=== PATIENT | male | born 1985 | race Two or more races ===

== ENCOUNTER → 2019-08-02 | Emergency (ER) | payer OTHER ==
[~2019-08-02] VITALS: Ht 188 cm; Wt 106.6 kg
[~2019-08-02] MED LIST: CIPROFLOXACIN 400MG/200ML 200 ML IV ONE; IOHEXOL 300 MG/ML 100ML BOTTLE IJ ONE; MORPHINE SULF INJ 2 MG/ML SYRINGE 1ML IV ONE; SODIUM CHLORIDE 0.9% 2,000 ML IV ONE; metroNIDAZOLE 500MG/100ML 100 ML IV ONE
[2019-08-02 19:04] LABS: Basophils # (auto) 0.1 10 ^3/uL (0-0.2); Basophils % (auto) 0.5 % (0.0-2.0); Eosinophils # (auto) 0.1 10 ^3/uL (0-0.8); Eosinophils % (auto) 1.3 % (0.0-7.0); Hematocrit 45.5 % (41.0-53.0); Hemoglobin 15.4 g/dL (13.5-17.5); Lymphocytes # (auto) 1.8 10 ^3/uL (0.4-5.4); Lymphocytes % (auto) 19.7 % (10.0-50.0); Mean Corpuscular Hemoglobin 28.6 pg (28.0-32.0); Mean Corpuscular Hgb Conc. 33.7 g/dL (32.0-36.0); Mean Corpuscular Volume 84.7 fL (80.0-100.0); Monocytes # (auto) 0.8 10 ^3/uL (0-1.3); Monocytes % (auto) 8.4 % (0.0-12.0); Neutrophils # (auto) 6.5 10 ^3/uL (1.6-8.6); Neutrophils % (auto) 70.1 % (37.0-80.0); Nucleated Red Blood Cells % 0.1 %; Platelet Count (auto) 273 10^3/uL (140-450); Red Blood Cells 5.38 10^6/uL (4.5-5.90); Red Cell Distribution Width 12.7 % (11.8-14.3); White Blood Cell 9.3 10^3/uL (4.4-10.8)
[2019-08-02 19:21] LABS: Albumin 3.9 g/dL (3.4-5.0); Potassium 3.7 mmol/L (3.5-5.1)
[2019-08-02 19:24] LABS: BUN/Creatinine Ratio 13.9; Bilirubin, Total 0.2 mg/dL (0.2-1.0); INR 1.02 (0.9-1.15); Partial Thromboplastin Time 25.9 sec (23.64-32.05); Total Protein 7.7 g/dL (6.4-8.2)
[2019-08-02 23:11] LABS: Urine Bacteria NONE SEEN /hpf (None Seen); Urine Blood Negative /uL (Negative); Urine WBC <1 /hpf (0 - 3)
[2019-08-02 23:16] LABS: Urine Specific Gravity > 1.050 (1.001-1.035)
[2019-08-03 00:40] VITALS: BP 110/64
== END | disposition home or self-care (01) ==
LOC: ER 18:06
DX: K80.10 Calculus of gallbladder with chronic cholecystitis without obstruction (principal); R11.2 Nausea with vomiting, unspecified; R19.7 Diarrhea, unspecified
CPT/HCPCS: 36415; 74177; 76705; 80053; 81001; 82150; 83605; 83690; 85025; 85610; 85730; 87804; 93005; 96361; 96365; 96367; 96375; 99285; J0744; J2270; J3490; Q9967

== ENCOUNTER → 2019-10-06 | Emergency (ER) | payer OTHER ==
[~2019-10-06] VITALS: Ht 190.5 cm; Wt 117.5 kg
[~2019-10-06] MED LIST changes: +ACETAMINOPHEN 325 MG TAB PO PRN; -CIPROFLOXACIN 400MG/200ML 200 ML IV ONE; +DOCUSATE SOD 100 MG CAP PO PRN; +HYDROcodone-ACET 5/325MG TAB PO PRN; +HYDROmorphone HCL 2 MG/ML VL IV ONE; -IOHEXOL 300 MG/ML 100ML BOTTLE IJ ONE; -MORPHINE SULF INJ 2 MG/ML SYRINGE 1ML IV ONE; +MORPHINE SULF INJ 2 MG/ML SYRINGE 1ML IV PRN; +ONDANSETRON HCL 4 MG/2 ML VIAL IV ONE; +ONDANSETRON HCL 4 MG/2 ML VIAL IV PRN; +SODIUM CHLORIDE 0.9% 1,000 ML IV SCH; -SODIUM CHLORIDE 0.9% 2,000 ML IV ONE; +cefTRIAXone 1GM/50ML D5W 50 ML IV SCH; -metroNIDAZOLE 500MG/100ML 100 ML IV ONE
[2019-10-06 02:43] LABS: Basophils # (auto) 0.1 10 ^3/uL (0-0.2); Basophils % (auto) 0.7 % (0.0-2.0); Eosinophils # (auto) 0.1 10 ^3/uL (0-0.8); Eosinophils % (auto) 1.3 % (0.0-7.0); Hematocrit 42.6 % (41.0-53.0); Hemoglobin 14.8 g/dL (13.5-17.5); Lymphocytes # (auto) 3.3 10 ^3/uL (0.4-5.4); Lymphocytes % (auto) 35.1 % (10.0-50.0); Mean Corpuscular Hemoglobin 28.9 pg (28.0-32.0); Mean Corpuscular Hgb Conc. 34.6 g/dL (32.0-36.0); Mean Corpuscular Volume 83.5 fL (80.0-100.0); Monocytes # (auto) 0.8 10 ^3/uL (0-1.3); Monocytes % (auto) 8.3 % (0.0-12.0); Neutrophils # (auto) 5.1 10 ^3/uL (1.6-8.6); Neutrophils % (auto) 54.6 % (37.0-80.0); Nucleated Red Blood Cells % 0.1 %; Platelet Count (auto) 318 10^3/uL (140-450); Red Blood Cells 5.11 10^6/uL (4.5-5.90); Red Cell Distribution Width 12.9 % (11.8-14.3); White Blood Cell 9.3 10^3/uL (4.4-10.8)
[2019-10-06 02:57] LABS: INR 1.02 (0.9-1.15); Partial Thromboplastin Time 25.4 sec (23.64-32.05)
[2019-10-06 03:01] LABS: Albumin 3.7 g/dL (3.4-5.0); Calcium 8.5 mg/dL (8.5-10.1); Potassium 3.4 mmol/L (3.5-5.1)
[2019-10-06 03:03] LABS: BUN/Creatinine Ratio 14.2
[2019-10-06 03:05] LABS: Bilirubin, Total 0.4 mg/dL (0.2-1.0); Total Protein 7.4 g/dL (6.4-8.2)
[2019-10-06 04:10] LABS: Urine Bacteria FEW /hpf (None Seen); Urine Blood Negative /uL (Negative); Urine Mucus FEW (None Seen); Urine Specific Gravity 1.025 (1.001-1.035); Urine WBC 2 /hpf (0 - 3)
[2019-10-06 10:10] LABS: BUN/Creatinine Ratio 14.3; Calcium 8.7 mg/dL (8.5-10.1); Potassium 4.4 mmol/L (3.5-5.1)
[2019-10-06 12:23] VITALS: BP 185/95
== END | disposition home or self-care (01) ==
LOC: EDUNIT# 01:45 → EDBD 01:51 → ER 01:52 → UNDOADMIN 01:53 → OVERFLOW 01:53
DX: K80.20 Calculus of gallbladder without cholecystitis without obstruction (principal); N39.0 Urinary tract infection, site not specified
CPT/HCPCS: 36415; 76705; 80048; 80053; 81001; 82150; 83036; 83690; 85025; 85610; 85730; 93005; 96361; 96365; 96375; 96376; 99285; J0696; J1170; J2270; J2405

== ENCOUNTER 2021-11-19 07:33 | Emergency (ER) | payer OTHER ==
[~2021-11-19] VITALS: Ht 188 cm; Wt 122.5 kg
[2021-11-19] MEDS ORDERED: DONNATAL 5ml ORAL Elix (BELLADONNA ALK-PHENOBARB) PO ONE (08:00)
[2021-11-19] MEDS ORDERED: ALUM & MAG HYDROX-SIMETH LIQ(MAALOX) 30 ML PO ONE (08:00)
[2021-11-19] MEDS ORDERED: ASPirin 81 mg TAB PO ONE (08:00)
[2021-11-19 08:20] LABS: Basophils # (auto) 0.1 10 ^3/uL (0-0.2); Basophils % (auto) 1.5 % (0.0-2.0); Eosinophils # (auto) 0.2 10 ^3/uL (0-0.8); Eosinophils % (auto) 3.6 % (0.0-7.0); Hematocrit 43.6 % (41.0-53.0); Hemoglobin 14.8 g/dL (13.5-17.5); Lymphocytes # (auto) 2.5 10 ^3/uL (0.4-5.4); Lymphocytes % (auto) 51.4 % (10.0-50.0); Mean Corpuscular Hemoglobin 28.2 pg (28.0-32.0); Mean Corpuscular Volume 83.1 fL (80.0-100.0); Monocytes # (auto) 0.5 10 ^3/uL (0-1.3); Monocytes % (auto) 10.8 % (0.0-12.0); Neutrophils # (auto) 1.6 10 ^3/uL (1.6-8.6); Neutrophils % (auto) 32.7 % (37.0-80.0); Red Blood Cells 5.25 10^6/uL (4.5-5.90); Red Cell Distribution Width 12.7 % (11.8-14.3); White Blood Cell 4.9 10^3/uL (4.4-10.8)
[2021-11-19 08:37] LABS: Albumin 4.2 g/dL (3.4-5.0); Calcium 8.5 mg/dL (8.5-10.1); Potassium 3.7 mmol/L (3.5-5.1)
[2021-11-19 08:41] LABS: BUN/Creatinine Ratio 13.4; Bilirubin, Total 0.8 mg/dL (0.2-1.0); Total Protein 7.6 g/dL (6.4-8.2)
[2021-11-19 09:11] LABS: Urine Bacteria NONE SEEN /hpf (None Seen); Urine Blood Negative /uL (Negative); Urine Mucus FEW (None Seen); Urine Specific Gravity 1.029 (1.001-1.035); Urine WBC 1 /hpf (0 - 3)
[2021-11-19 11:51] VITALS: BP 157/97
== END 2021-11-19 11:53 | disposition home or self-care (01) ==
LOC: ER 07:33
DX: R07.89 Other chest pain (principal); E11.9 Type 2 diabetes mellitus without complications; Z90.49 Acquired absence of other specified parts of digestive tract
CPT/HCPCS: 36415; 71045; 80053; 81001; 83690; 84484; 85025; 93005